=== PATIENT | female | born 1995 | race Caucasian/White ===

== ENCOUNTER 2018-02-04 20:42 | Emergency (ER) | payer MEDICAID ==
[~2018-02-04] VITALS: Ht 157.5 cm; Wt 67.0 kg
[2018-02-04 21:14] VITALS: BP 124/79
[2018-02-04] MEDS ORDERED: LIDOCAINE HCL 1% 20ML VIAL (Pyxis) INJ INFIL ONE (23:30)
[2018-02-04] MEDS ORDERED: TETANUS, DIPHTHERIA, PERTUSSIS VAC/PF 0.5ML (>7YR OLD) IM ONE (23:30)
== END 2018-02-05 00:58 | disposition home or self-care (01) ==
LOC: ER 20:57
DX: S61.411A Laceration without foreign body of right hand, initial encounter (principal); E11.9 Type 2 diabetes mellitus without complications; Y93.G1 Activity, food preparation and clean up; Z23 Encounter for immunization
CPT/HCPCS: 12002; 90471; 90715; 99283; J3490

== ENCOUNTER 2018-02-12 14:56 | Emergency (ER) | payer MEDICAID ==
[~2018-02-12] VITALS: Ht 160 cm; Wt 65.0 kg
[2018-02-12 15:18] VITALS: BP 123/83
[2018-02-12] MEDS ORDERED: BACITRACIN ZINC OINT UDPKT TOP ONE (15:30)
== END 2018-02-12 20:43 | disposition left against medical advice (07) ==
LOC: ER 14:56
DX: Z48.00 Encounter for change or removal of nonsurgical wound dressing (principal)
CPT/HCPCS: 99281